=== PATIENT | female | born 1950 | race Caucasian/White ===

== ENCOUNTER 2018-04-11 13:08 | Outpatient (CLI) | payer OTHER ==
[~2018-04-11] VITALS: Ht 162.6 cm; Wt 69.9 kg
[2018-04-11 14:10] VITALS: BP 134/78
[2018-04-11] MEDS ORDERED: LISINOPRIL20 MG ORAL (14:28)
[2018-04-11] MEDS ORDERED: LUMIGAN2.5 ML BOTH EYES (14:28)
[2018-04-11] MEDS ORDERED: SIMVASTATIN40 MG ORAL (14:28)
--- NOTE | 2018-04-11 14:29 | GI Initial Consult Note ---
History of Present Illness General Date patient seen: Apr 11, 2018 Time patient seen: 14:26 Referring physician: HMO Reason for Consultation: Colonoscopy screening Present Illness HPI 67-year-old female presents today for colonoscopy screening. Patient reports her last colonoscopy was approximately over 11 years ago. Patient denies any GI symptoms; denies any abdominal pain, denies any nausea vomiting or diarrhea. Denies any unintentional weight loss or changes in dietary habits. No signs of abuse or neglect. Patient is not fall risk. Home Meds Reported Medications Bimatoprost (LUMIGAN) 2.5 Ml Drops, 1 DROP BOTH EYES DAILY, #2.5 ML 0 Refills 04/11/18 Simvastatin (ZOCOR) 40 Mg Tablet, 40 MG ORAL BEDTIME, TAB 04/11/18 Lisinopril (LISINOPRIL*) 20 Mg Tablet, 10 MG ORAL DAILY, TAB 04/11/18 Med list reviewed/reconciled: Yes Allergies: Coded Allergies: No Known Allergies (Unverified , 04/11/18) Patient History History Provided By: Patient, Medical Record [facility] Narrative Hypertension Hyperlipidemia Denies any surgical history Pertinent Family History: none Social History: Denies: smoking, alcohol use, drug use, other Review of Systems All Other Systems: negative except mentioned in HPI Physical Exam Vital Signs Date Time Temp Pulse Resp B/P (MAP) Pulse Ox O2 Delivery O2 Flow Rate FiO2 04/11/18 14:10 97.8 70 134/78 97 Sp02 EP Interpretation: reviewed, normal General Appearance: well appearing, no apparent distress, alert Head: normocephalic EENT: PERRL/EOMI, normal ENT inspection Neck: supple Respiratory: normal breath sounds, no respiratory distress Cardiovascular: normal rate Gastrointestinal: normal inspection, non tender, soft, normal bowel sounds, non -distended Rectal: deferred Genitourinary: no CVA tenderness Musculoskeletal: normal inspection, back normal Neurologic: normal inspection, alert, oriented x3, responsive Psychiatric: normal inspection, judgement/insight normal, memory normal Skin: normal inspection, normal color, no rash, warm/dry, palpation normal, well hydrated Lymphatic: normal inspection, no adenopathy Other Organ Systems Height 5 4 Weight 154 pounds GI: Plan Problems: (1) Encounter for screening colonoscopy (2) Hypertension (3) Hyperlipidemia Plan EGD/colonoscopy to be scheduled pending PA, will contact patient. - CLD & (Nulytely/Suprep/Movi-Prep) prep instructions given and acknowledged by patient. - NPO @ MI day prior procedure explained. Will follow with additional recs post procedure. Seen with Dr. Jimenez. Thank you for this patient referral. The patient was seen and examined at bedside and all new and available data was reviewed in the patients chart. I agree with the above findings, impression and plan. (Patient seen earlier today. Signature stamp does not reflect patient encounter time.). - MD Laila DamonCobre Valley [facility] Medical CenterYasmany [facility] Apr 11, 2018 14:29
== END 2018-04-11 13:38 | disposition home or self-care (01) ==
LOC: PAN 13:08
DX: Z12.11 Encounter for screening for malignant neoplasm of colon (principal); I10 Essential (primary) hypertension; E78.5 Hyperlipidemia, unspecified
CPT/HCPCS: 99202

== ENCOUNTER 2018-07-09 09:38 | Outpatient (CLI) | payer OTHER ==
[~2018-07-09 09:38] MED LIST: LISINOPRIL20 MG ORAL; LUMIGAN2.5 ML BOTH EYES; SIMVASTATIN40 MG ORAL
--- NOTE | 2018-07-09 10:18 | General Progress Note ---
Assessment/Plan Problem List: (1) Internal hemorrhoid ICD Codes: K64.8 - Other hemorrhoids SNOMED: 78012171 (2) Hyperlipidemia ICD Codes: E78.5 - Hyperlipidemia, unspecified SNOMED: 67781125 (3) Hypertension ICD Codes: I10 - Essential (primary) hypertension SNOMED: 21004952 Assessment/Plan: repeat colonoscopy in 5 years Subjective ROS Limited/Unobtainable: Yes Allergies: Coded Allergies: No Known Allergies (Unverified , 04/11/18) Subjective no abd pain Objective General Appearance: alert EENT: normal ENT inspection Neck: supple Cardiovascular: normal rate Respiratory/Chest: lungs clear Abdomen: normal bowel sounds, non tender, soft Extremities: non-tender John Jimenez MD Jul 09, 2018 10:18
[2018-07-09 12:43] VITALS: BP 143/81
== END 2018-07-09 11:00 | disposition home or self-care (01) ==
LOC: PAN 09:38
DX: K64.8 Other hemorrhoids (principal); E78.5 Hyperlipidemia, unspecified; I10 Essential (primary) hypertension
CPT/HCPCS: 99212